=== PATIENT | male | born 1965 | race American Indian/Alaskan Native ===

== ENCOUNTER 2016-08-24 17:04 | Emergency (ER) | payer OTHER ==
[~2016-08-24] VITALS: Ht 172.7 cm; Wt 86.2 kg
[2016-08-24 17:51] VITALS: BP 137/91
[2016-08-24] MEDS ORDERED: AMLODIPINE BESYL5 MG ORAL (17:56)
--- NOTE | 2016-08-24 19:51 | Emergency Room Report ---
History of Present Illness General Chief Complaint: General Complaint Source: Patient Present Illness HPI 51-year-old male presents ED for evaluation. Patient notes history of hypertension. States he was recently switched from amlodipine to hydrochlorothiazide. States he's been taking hydrochlorothiazide for the last 3 days has been feeling nauseous. Eyes vomiting. Denies chest pain or shortness of breath. Denies any fevers chills. Patient states that he is having some back pain. 08/01. Throbbing. Nonradiating. Worse with twisting and bending. Patient is chronic history of back pain. No other aggravating or relieving factors. Denies any other associated symptom Allergies: Coded Allergies: No Known Allergies (Unverified , 08/24/16) Patient History Past Medical History: HTN Past Surgical History: none Pertinent Family History: none Social History: Denies: alcohol use, drug use, smoking Immunizations: UTD Reviewed Nursing Documentation: PMH: Agreed, PSxH: Agreed Nursing Documentation-PMH Past Medical History: No History, Except For Hx Hypertension: Yes Review of Systems All Other Systems: negative except mentioned in HPI Physical Exam Vital Signs Date Time Temp Pulse Resp B/P Pulse Ox O2 Delivery O2 Flow Rate FiO2 08/24/16 17:14 97.9 86 18 137/91 98 Room Air Sp02 EP Interpretation: reviewed, normal General Appearance: no apparent distress, alert, GCS 15, non-toxic Head: normocephalic, atraumatic Eyes: bilateral eye PERRL, bilateral eye normal inspection ENT: hearing grossly normal, normal pharynx, no angioedema, normal voice Neck: full range of motion, supple/symm/no masses Respiratory: chest non-tender, lungs clear, normal breath sounds, speaking full sentences Cardiovascular #1: regular rate, rhythm, no edema Cardiovascular #2: 2+ carotid (R), 2+ carotid (L), 2+ radial (R), 2+ radial (L) , 2+ dorsalis pedis (R), 2+ dorsalis pedis (L) Gastrointestinal: normal bowel sounds, non tender, soft, non-distended, no guarding, no rebound Rectal: deferred Genitourinary: normal inspection, no CVA tenderness Musculoskeletal: back normal, gait/station normal, normal range of motion, non- tender Neurologic: alert, oriented x3, responsive, motor strength/tone normal, sensory intact, speech normal Psychiatric: judgement/insight normal, memory normal, mood/affect normal, no suicidal/homicidal ideation Reflexes: 3+ bicep (R), 3+ bicep (L), 3+ tricep (R), 3+ tricep (L), 3+ knee (R) , 3+ knee (L) Skin: normal color, no rash, warm/dry, well hydrated Lymphatic: no adenopathy Medical Decision Making Diagnostic Impression: Primary Impression: Adverse reaction to drug Qualified Codes: T88.7XXA - Unspecified adverse effect of drug or medicament, initial encounter Additional Impression: Hypertension Qualified Codes: I10 - Essential (primary) hypertension ER Course 51-year-old male presents to ED complaining of nausea and back pain after starting new blood pressure medication. History of hypertension Differential-allergic reaction, viral syndrome, back pain Patient placed on stretcher. After initial history physical exam reveals a middle-aged male in no acute distress. Physical exam unremarkable. Vital stable. I see no reason for lab work for further intervention. Pain in back is muscular and is his typical pain I see no reason for further exploration. I explained to the patient we'll switch him from for thiazide back to amlodipine. Patient will need to discuss this with his PMD as to which medication is best for him in the long run. Patient agrees with plan Diagnoses-adverse reaction to drug, hypertension Stable and discharged to home with prescription for amlodipine. Stop hydrochlorothiazide. Followup with PMD. Return to ED if symptoms recur or worsen Last Vital Signs Date Time Temp Pulse Resp B/P Pulse Ox O2 Delivery O2 Flow Rate FiO2 08/24/16 17:51 97.9 18 137/91 98 Room Air 08/24/16 17:14 86 Status: improved Disposition: HOME, SELF-CARE Condition: Stable Scripts Amlodipine Besylate* (AMLODIPINE BESYLATE*) 5 Mg Tablet 5 MG ORAL DAILY, #30 TAB Prov: HITESH DAI M.D. 08/24/16 Referrals: [employer] [facility] (PCP) Patient Instructions: Hypertension, [id number] HITESH DAI M.D. August 24, 2016 19:50
== END 2016-08-24 18:05 | disposition home or self-care (01) ==
LOC: EMR 17:45
DX: T50.2X5A Adverse effect of carbonic-anhydrase inhibitors, benzothiadiazides and other diuretics, initial encounter (principal); R11.0 Nausea; M54.9 Dorsalgia, unspecified; I10 Essential (primary) hypertension
CPT/HCPCS: 99283

== ENCOUNTER 2016-09-17 21:56 | Emergency (ER) | payer OTHER ==
[~2016-09-17] VITALS: Ht 172.7 cm; Wt 86.2 kg
[~2016-09-17 21:56] MED LIST: AMLODIPINE BESYL5 MG ORAL
[2016-09-17] MEDS ORDERED: Ketorolac 60mg Inj IM ONE (22:15)
[2016-09-17 22:27] VITALS: BP 135/83
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
[2016-09-17] MEDS ORDERED: IBUPROFEN600 MG ORAL (23:07)
[2016-09-17] MEDS ORDERED: TRAMADOL HCL50 MG ORAL (23:07)
[2016-09-17 23:19] VITALS: BP 135/83
== END 2016-09-17 23:20 | disposition home or self-care (01) ==
LOC: EMR 22:10
DX: S86.811A Strain of other muscle(s) and tendon(s) at lower leg level, right leg, initial encounter (principal); X58.XXXA Exposure to other specified factors, initial encounter; Y93.9 Activity, unspecified; Y92.9 Unspecified place or not applicable; I10 Essential (primary) hypertension
CPT/HCPCS: 29540; 96372; 99284

== ENCOUNTER 2017-06-09 18:22 | Emergency (ER) | payer OTHER ==
[~2017-06-09] VITALS: Ht 172.7 cm; Wt 95.3 kg
[~2017-06-09 18:22] MED LIST changes: +IBUPROFEN600 MG ORAL; +TRAMADOL HCL50 MG ORAL
--- NOTE | 2017-06-09 18:37 | Emergency Room Report ---
History of Present Illness General Chief Complaint: Laceration Source: Patient, Medical Record Present Illness HPI 51 yo male patient prsents to ER for laceration on left palm for a few hours. Patient reports he was at work and set his hand down on some glass and "cut" his hand. Patient denies loss of ROM or numbness in hand. Patient reports bleeding from laceration; states was able to stop bleeding with pressure. Patient reports he does not know his vaccine status for tetanus. Patient denies fever, chest pain, SOB. Allergies: Coded Allergies: No Known Allergies (Unverified , 08/24/16) Patient History Past Medical History: see triage record Reviewed Nursing Documentation: PMH: Agreed, PSxH: Agreed Nursing Documentation-PMH Past Medical History: No History, Except For Hx Hypertension: Yes Review of Systems All Other Systems: negative except mentioned in HPI Physical Exam Vital Signs Date Time Temp Pulse Resp B/P (MAP) Pulse Ox O2 Delivery O2 Flow Rate FiO2 06/09/17 18:24 98.0 83 18 142/85 96 Room Air 98.1 Sp02 EP Interpretation: reviewed, normal General Appearance: well appearing, no apparent distress, alert, GCS 15, non- toxic Head: normocephalic, atraumatic Eyes: bilateral eye normal inspection, bilateral eye PERRL, bilateral eye EOMI ENT: hearing grossly normal, normal pharynx, normal voice, TMs + canals normal , uvula midline, moist mucus membranes Neck: normal inspection, full range of motion, no bony tend Respiratory: normal inspection, lungs clear, normal breath sounds, no rhonchi, no respiratory distress, no accessory muscle use, no wheezing, speaking full sentences Cardiovascular #1: regular rate, rhythm, no edema Musculoskeletal: back normal, digits/nails normal, gait/station normal, normal range of motion, no calf tenderness, other - NVI Neurologic: alert, oriented x3, responsive, net application architect III-XII nml as tested, motor strength/tone normal, normal gait Psychiatric: mood/affect normal Skin: no rash, warm/dry, palpation normal, laceration - 2cm laceration on left palm near thenar eminence, no active bleeding Lymphatic: no adenopathy Procedures Laceration/Wound Repair Laceration/Wound Repair : Consent: Verbal Wound Location: upper extremity - left hand Wound's Depth, Shape: superficial Wound Explored: contaminated Betadine Prep?: Yes Anesthesia: 1% Lidocaine Wound Repaired With: sutures Suture Size/Type: 5:0, proline Number of Sutures: 4 Layer Closure?: No Sterile Dressing Applied?: Yes Splint Applied?: No Patient Tolerated: Well Complications: None Medical Decision Making PA Attestation Dr. Rodriguez is my supervising Physician whom patient management has been discussed with. Diagnostic Impression: Primary Impression: Laceration ER Course Pt presents to ED c/o laceration on right wrist. DDX considered but are not limited to laceration, abrasion, contusion, cellulitis. Ordered xray, tdap, lidocaine, and pain medication for patient. VITAL SIGNS are WNL, patient is afebrile ED INTERVENTIONS: Xray of hand negative for acute fracture, no retained FB visible on x-ray. Wound was cleaned and irrigated using normal saline. Local block using Lidocaine 1%. Laceration repaired. Wound cleaned and covered using sterile dressing and Bacitracin. See procedure note. Patient reports understanding and agreement to treatment plan. DISCHARGE: Rx provided for Keflex Rx provided for Ibuprofen Rx provided for Bacitracin. At this time pt is stable for d/c to home. Will provide with patient care instructions and any necessary prescriptions. Patient to take medication as instructed. Care plan and follow-up instructions provided. Work note provided to patient. Signed paperwork for injury at work. Patient questions asked and answered. Patient instructed to follow-up with primary care provider in 2-3 days for wound check and 7-10 days for removal of sutures. Patient instructed to followup with PCP to discuss further treatment plan and ability to go to work, ER precautions given. Patient instructed to return to ER immediately for any new or worsening of symptoms. Other X-Ray Diagnostic Results Other X-Ray Diagnostic Results : X-Ray ordered: left hand # of Views/Limited Vs Complete: 3 View Indication: Pain EP Interpretation: Yes GIL Xray: Interpretation reviewed, by supervising MD, and agrees with findings. Interpretation: no dislocation, no soft tissue swelling, no fractures Impression: No acute disease GIL Scribe Text Hiram Nassar PA-C Last Vital Signs Date Time Temp Pulse Resp B/P (MAP) Pulse Ox O2 Delivery O2 Flow Rate FiO2 06/09/17 18:24 98.0 83 18 142/85 96 Room Air 98.1 Status: improved Disposition: HOME, SELF-CARE Condition: Stable Scripts Ibuprofen* (MOTRIN*) 600 Mg Tablet 600 MG ORAL Q8H Y for For Pain, #30 TAB 0 Refills Prov: Mal Nassar 06/09/17 Cephalexin* (KEFLEX*) 500 Mg Capsule 500 MG ORAL EVERY 12 HOURS for 7 Days, #14 CAP 0 Refills Prov: Mal Nassar 06/09/17 Bacitracin/Polymyxin B Sulfate (BACITRACIN-POLYMYXIN OINTMENT) 28.35 Gm Oint...g. 1 APPLIC TP BID for 7 Days, GM Prov: Mal Nassar 06/09/17 Referrals: [facility] (PCP) Patient Instructions: Laceration Care, Adult Additional Instructions: Followup with primary care provider in 2-3 days for wound check and 7-10 for suture removal. Take medications as directed. Patient questions asked and answered. ER precautions given, patient instructed to return to ER immediately for any new or worsening of symptoms. Mal Nassar Jun 09, 2017 18:37
[2017-06-09] MEDS ORDERED: Lidocaine 1% Plain 30 ml INJ ONE (18:45)
[2017-06-09] MEDS ORDERED: Ketorolac 30mg Inj IM ONE (18:45)
[2017-06-09] MEDS ORDERED: Bacitracin Oint UD TOPIC ONE (18:45)
[2017-06-09] MEDS ORDERED: Tetanus/Diptheria/Pertussis Vaccine 0.5ml Syr IM ONE (18:45)
[2017-06-09] MEDS ORDERED: BACITRACIN-P28.35 GM TP (19:20)
[2017-06-09] MEDS ORDERED: CEPHALEXIN500 MG ORAL (19:20)
[2017-06-09] MEDS ORDERED: IBUPROFEN600 MG ORAL (19:20)
[2017-06-09 19:33] VITALS: BP 140/85
[2017-06-09 19:34] VITALS: BP 140/85
--- NOTE | 2017-06-10 11:16 | Diagnostic Imaging Report ---
Indication: pain Findings: 3 views of the left hand were obtained. Metallic foreign bodies demonstrated over the lateral aspect of the hand. Osteophytes and joint space narrowing involving interphalangeal joints especially the DIP joints noted. No fracture identified. IMPRESSION: Osteoarthritis Evidence of prior injury
== END 2017-06-09 19:38 | disposition home or self-care (01) ==
LOC: EMR 18:35
DX: S61.412A Laceration without foreign body of left hand, initial encounter (principal); I10 Essential (primary) hypertension; Z23 Encounter for immunization; W25.XXXA Contact with sharp glass, initial encounter; Y93.9 Activity, unspecified; Y99.0 Civilian activity done for income or pay
CPT/HCPCS: 12001; 73130; 90471; 90715; 96372; 99284; J1885; J2001; Z7502

== ENCOUNTER 2018-11-22 19:30 | Emergency (ER) | payer OTHER ==
[~2018-11-22] VITALS: Ht 172.7 cm; Wt 95.3 kg
[~2018-11-22 19:30] MED LIST changes: +BACITRACIN-P28.35 GM TP; +CEPHALEXIN500 MG ORAL
[2018-11-22] MEDS ORDERED: NKM (19:50)
--- NOTE | 2018-11-22 20:00 | NUR ---
ED Nurse Note: Recieved pt from home, c/o lower back pain, denies injury, states felt strain since yesterday, pain worsene when moving, pt does heavy lifting, pain at 5/10, pt also took garlic treatment at home yesterday eating 5 garlic cloves and now nausea, denies cp, sob, or any other complaitns or discomforts.
[2018-11-22] MEDS ORDERED: Ketorolac 60mg Inj IM ONE (20:15)
[2018-11-22 21:30] VITALS: BP 141/79
--- NOTE | 2018-11-22 21:31 | Emergency Room Report ---
History of Present Illness General Chief Complaint: Back Pain-No Injury Source: Patient Present Illness HPI This patient states that a few days ago he was at work lifting a heavy object and twisted his back. He states he had pain at that time. He states that subsequently he again went to work and aggravated his back symptoms. He states he is also been nauseated today. He was also concerned about his blood pressure as he has a history of high blood pressure and was using amlodipine but stopped on his own and started eating garlic cloves. Patient denies recent illness. Denies fever or chills. He denies abdominal pain. Denies diarrhea. He states he still has a little nauseated. He has no other complaints. Allergies: Coded Allergies: No Known Allergies (Unverified , 08/24/16) Patient History Past Medical History: see triage record, HTN Social History: Denies: smoking, alcohol use, drug use Reviewed Nursing Documentation: PMH: Agreed; PSxH: Agreed Nursing Documentation-PMH Hx Hypertension: Yes Review of Systems All Other Systems: negative except mentioned in HPI Physical Exam Vital Signs Date Time Temp Pulse Resp B/P (MAP) Pulse Ox O2 Delivery O2 Flow Rate FiO2 11/22/18 19:45 98.1 63 14 144/85 (104) 94 Room Air Sp02 EP Interpretation: reviewed, normal General Appearance: no apparent distress, alert, GCS 15, non-toxic Head: normocephalic, atraumatic Eyes: bilateral eye normal inspection, bilateral eye PERRL ENT: hearing grossly normal, normal pharynx, no angioedema, normal voice Neck: full range of motion, supple/symm/no masses Respiratory: chest non-tender, lungs clear, normal breath sounds, no respiratory distress, no retraction, no accessory muscle use, speaking full sentences Cardiovascular #1: regular rate, rhythm, no edema Gastrointestinal: normal bowel sounds, non tender, soft, non-distended, no guarding, no rebound Rectal: deferred Musculoskeletal: back normal, gait/station normal, normal range of motion, tender - TTP Lumbar paraspinal m. Neurologic: alert, oriented x3, responsive, motor strength/tone normal, sensory intact, speech normal Psychiatric: judgement/insight normal, memory normal, mood/affect normal, no suicidal/homicidal ideation Medical Decision Making Diagnostic Impression: Primary Impression: Back pain ER Course This patient has a clinical presentation consistent with mechanical back pain. There are no red flags on physical exam. The patient denies any concerning features such as trauma, fevers, night sweats, history of malignancy, pain worse at night, IV drug abuse, urinary/fecal incontinence or retention, focal weakness or change in sensation, or refractory pain. Given these pertinent negatives in the history and physical exam an emergent cause of the back pain such as epidural abscess, metastasis to bone, cauda equina syndrome, and fracture is less likely. I also doubt emergent cardiovascular cause of back pain such as aortic dissection a ruptured abdominal aortic aneurysm given patient with equal pulses in all 4 extremities with no diastolic murmur or pulsatile abdominal mass. The patient was counseled that, though unlikely, the possibility of an emergent cause of back pain may still be present and that the patient should return immediately if symptoms persist or worsen. The symptoms are reproducible with movement. Patient had a benign evaluation and neurologic examination. No emergency etiology was identified. Last Vital Signs Date Time Temp Pulse Resp B/P (MAP) Pulse Ox O2 Delivery O2 Flow Rate FiO2 11/22/18 19:45 98.1 63 14 144/85 (104) 94 Room Air Status: improved Disposition: HOME, SELF-CARE Condition: Improved Patient Instructions: Back Pain, Adult Tonya Grey DO Nov 22, 2018 21:31
[2018-11-22] MEDS ORDERED: IBUPROFEN600 MG ORAL (21:33)
[2018-11-22] MEDS ORDERED: AMLODIPINE BESYL5 MG ORAL (21:33)
[2018-11-22] MEDS ORDERED: CYCLOBENZAPRINE10 MG ORAL (21:33)
[2018-11-22 21:55] VITALS: BP 144/85
--- NOTE | 2018-11-22 21:55 | NUR ---
ER DISCHARGE NOTE: Patient is cleared to be discharged per ERMD, pt is aox4, on room air, with stable vital signs. pt was given dc and prescription instructions, pt was able to verbalize understanding, pt id band removed without complications. pt is able to ambulate with steady gait. pt took all belongings.
== END 2018-11-22 21:55 | disposition home or self-care (01) ==
LOC: EMR 20:15
DX: M54.5 Low back pain (principal); X50.0XXA Overexertion from strenuous movement or load, initial encounter; Y92.9 Unspecified place or not applicable; I10 Essential (primary) hypertension
CPT/HCPCS: 96372; 99283

== ENCOUNTER 2019-10-07 12:54 | Emergency (ER) | payer OTHER ==
[~2019-10-07] VITALS: Ht 172.7 cm; Wt 86.2 kg
[~2019-10-07 12:54] MED LIST changes: +CYCLOBENZAPRINE10 MG ORAL; +NKM
[2019-10-07 13:05] VITALS: BP 151/75
[2019-10-07] MEDS ORDERED: Ketorolac 30mg Inj IV ONE (13:15)
[2019-10-07] MEDS ORDERED: Omnipaque-300 100ml vial INJ PRN (13:15)
--- NOTE | 2019-10-07 13:34 | NUR ---
ED Nurse Note:pt. came with c/o abdominal pain nausea diahrrea, blood and urine sent to labs, given IV meds
[2019-10-07 13:50] LABS: BASOPHILS % (AUTO) 2.9 % (0.0-2.0); HEMATOCRIT 49.3 % (42.0-52.0); LYMPHOCYTES % (AUTO) 46.9 % (20.0-45.0); MEAN CORPUSCULAR VOLUME 94 FL (80-99); MONOCYTES % (AUTO) 6.7 % (1.0-10.0); NEUTROPHILS % (AUTO) 39.4 % (45.0-75.0); PLATELET COUNT 244 K/UL (150-450); RED BLOOD COUNT 5.24 M/UL (4.70-6.10); RED CELL DISTRIBUTION WIDTH 13.4 % (11.6-14.8); WHITE BLOOD COUNT 4.4 K/UL (4.8-10.8)
[2019-10-07 13:50] LABS: APPEARANCE,URINE CLEAR; BILIRUBIN, URINE NEGATIVE (NEGATIVE); COLOR,URINE YELLOW; GLUCOSE, URINE (UA) NEGATIVE (NEGATIVE); KETONES,URINE 1+ (NEGATIVE); LEUKOCYTE ESTERASE ,URINE 1+ (NEGATIVE); NITRITE,URINE NEGATIVE (NEGATIVE); PH,URINE 8 (4.5-8.0); PROTEIN,URINE NEGATIVE (NEGATIVE); UROBILINOGEN,URINE 8 MG/DL (0.0-1.0)
[2019-10-07 13:59] LABS: ANION GAP 2 mmol/L (5-15); BLOOD UREA NITROGEN 9 mg/dL (7-18); CALCIUM 8.3 MG/DL (8.5-10.1); CARBON DIOXIDE 31 MMOL/L (21-32); CHLORIDE 105 MMOL/L (98-107); POTASSIUM 4.2 MMOL/L (3.5-5.1); SODIUM 138 MMOL/L (136-145)
[2019-10-07] MEDS ORDERED: Azithromycin 500 MG in NS 275 ML IV ONE (14:00)
[2019-10-07] MEDS ORDERED: cefTRIAXone 1 GM in NS 55 ML IVPB ONE (14:00)
[2019-10-07 14:04] LABS: ALANINE AMINOTRANSFERASE 40 U/L (12-78); ALBUMIN 3.7 G/DL (3.4-5.0); ALBUMIN/GLOBULIN RATIO 1.1 (1.0-2.7); ALKALINE PHOSPHATASE 76 U/L (46-116); ASPARTATE AMINO TRANSFERASE 63 U/L (15-37); BILIRUBIN,TOTAL 0.5 MG/DL (0.2-1.0)
--- NOTE | 2019-10-07 14:45 | NUR ---
ED Nurse Note:pt. went to abdominal CT scan
--- NOTE | 2019-10-07 15:06 | Diagnostic Imaging Report ---
Indication: Reason For Exam: PAIN Technique: CT scan of the abdomen and pelvis was performed from the diaphragms to the symphysis pubis with intravenous contrast material only per specific request of the ordering physician.. 5 mm sections were generated. Axial, coronal, and sagittal images are presented. Dose: Total Dose Length Product - DLP [address] Dose Index - CTDIvol(s) 9 mGy. Automated exposure control was utilized for dose reduction. Comparison: None Findings: Granulomas are noted in the lung bases. There are calcified nodes in the pulmonary mikayla bilaterally. Linear densities are noted in the posterior lung bases. The liver is unremarkable. The gallbladder is normal. The spleen is normal. Pancreas is unremarkable. Adrenal glands are normal. Kidneys are normal. There is minimal calcification of the aorta. Retroperitoneum is free of adenopathy. The bowel is normal caliber. The appendix is normal. Diverticula are present in the colon. There is no definite evidence of diverticulitis. The bladder is normal. Prostate and seminal vesicles are unremarkable. There is a small umbilical hernia containing fat. Impression: Diverticulosis. Old granulomatous disease. Bilateral scarring or atelectasis in the bases. Small umbilical hernia containing fat. Atherosclerotic change. The CT scanner at [facility] is accredited by the [employer] and the scans are performed using protocols designed to limit radiation exposure to as low as reasonably achievable to attain images of sufficient resolution adequate for diagnostic evaluation.
--- NOTE | 2019-10-07 15:11 | Emergency Room Report ---
History of Present Illness General Chief Complaint: Nausea, Vomiting, and Diarrhea Source: Patient Present Illness HPI 54-year-old male with history of liver disease due to alcohol abuse and hypertension currently not controlled here complaining of 1 week of diffuse abdominal pain rating it 5 out of 10 and few bouts of nonbloody emesis and nonbloody diarrhea. Denies any fever and chills. Reports that his sexual partner was diagnosed with PID over a week ago and patient symptoms started right after. Reports that he has not had any alcohol or any opiates in 20 years however icterus is noted in both eyes. Denies any chest pain, shortness of breath, headache and dizziness. Denies any urinary symptoms or penile discharge. Reports that his sexual partner was treated for PID as outpatient. Patient is requesting treatment for that. No abdominal tenderness noted. Patient used to take amlodipine for blood pressure however has not taken in a long time. Denies any headache and dizziness, unilateral or generalized weakness. Patient is neurovascularly intact and speaking in full sentences. Denies any tobacco smoke, marijuana use, no other drug use. Allergies: Coded Allergies: No Known Allergies (Unverified , 08/24/16) COVID-19 Screening Contact w/high risk pt: No Recent Travel to affected area: No Experienced COVID-19 symptoms?: No COVID-19 Testing performed TOY STUFFER: No Patient History Past Medical History: see triage record Past Surgical History: none Pertinent Family History: none Immunizations: UTD Reviewed Nursing Documentation: PMH: Agreed; PSxH: Agreed Nursing Documentation-PMH Past Medical History: No History, Except For Hx Hypertension: Yes Review of Systems All Other Systems: negative except mentioned in HPI Physical Exam Vital Signs Date Time Temp Pulse Resp B/P (MAP) Pulse Ox O2 Delivery O2 Flow Rate FiO2 10/07/19 13:00 98.1 69 17 151/75 (100) 98 Room Air Sp02 EP Interpretation: reviewed, abnormal - Elevated blood pressure General Appearance: no apparent distress, alert, GCS 15, non-toxic Head: normocephalic, atraumatic Eyes: bilateral eye normal inspection, bilateral eye PERRL ENT: hearing grossly normal, normal pharynx, no angioedema, normal voice Neck: full range of motion, supple/symm/no masses Respiratory: chest non-tender, lungs clear, normal breath sounds, no rhonchi, no respiratory distress, no retraction, no wheezing, speaking full sentences Cardiovascular #1: regular rate, rhythm, no edema, no murmur Gastrointestinal: normal bowel sounds, non tender, soft, no mass, no organomegaly, no peritonitis, no bruit, no guarding, no pulsatile mass, no rebound, distended, other - Grande sign is negative,, abdomen appears to be distended however patient reports it is been like that for a long time Rectal: deferred Genitourinary: no CVA tenderness Musculoskeletal: back normal, no calf tenderness, pelvis stable, no lower extremity edema Neurologic: alert, motor strength/tone normal, oriented x3, sensory intact, responsive, speech normal Psychiatric: judgement/insight normal, memory normal, mood/affect normal, no suicidal/homicidal ideation Skin: no rash Lymphatic: no adenopathy Medical Decision Making PA Attestation All my diagnosis and treatment plans were reviewed ad discussed with my supervising physician Dr. Grey Diagnostic Impression: Primary Impression: Diverticulosis Additional Impressions: Abdominal hernia STD exposure Nausea, vomiting, and diarrhea ER Course 54-year-old male with history of liver disease due to alcohol abuse and hypertension currently not controlled here complaining of 1 week of diffuse abdominal pain rating it 5 out of 10 and few bouts of nonbloody emesis and nonbloody diarrhea. Denies any fever and chills. Reports that his sexual partner was diagnosed with PID over a week ago and patient symptoms started right after. Reports that he has not had any alcohol or any opiates in 20 years however icterus is noted in both eyes. Denies any chest pain, shortness of breath, headache and dizziness. Denies any urinary symptoms or penile discharge. Reports that his sexual partner was treated for PID as outpatient. Patient is requesting treatment for that. No abdominal tenderness noted. Patient used to take amlodipine for blood pressure however has not taken in a long time. Denies any headache and dizziness, unilateral or generalized weakness. Patient is neurovascularly intact and speaking in full sentences. Denies any tobacco smoke, marijuana use, no other drug use. Ddx considered but are not limited to: appendicitis, cholecystis, gastritis, gastroenteritis, UTI, pyelonephritis, SBO, diverticulitis, diverticulosis, pancreatitis, Rico-Arnaldo Dipesh Vital signs: are WNL, pt. is afebrile H&PE are most consistent with: STD exposure, abdominal hernia, diverticulosis, nausea vomiting diarrhea ORDERS: abdominal CT, abdominal pain set, EKG, Zofran, omeprazole, dicyclomine, ciprofloxacin ED INTERVENTIONS: Toradol, NS bolus, Zofran, Pepcid, ceftriaxone, azithromycin DISCHARGE: At this time pt. is stable for d/c to home. Will provide printed patient care instructions, and any necessary prescriptions. Care plan and follow up instructions have been discussed with the patient prior to discharge. Patient to follow primary doctor for referral to business development, take medication as directed, keep a brat diet, at this time no further evaluation needed as patient blood work are within normal limits and CT scan was within normal limits other than diverticulosis without diverticulitis and chronic granulomas as well as a small abdominal hernia which is not the cause of his symptoms at this time. The hernia is not protruding and is reducible. Patient was advised to return to the emergency room worsening symptoms. Increase oral hydration especially electrolyte water. Patient was evaluated in the context of the global COVID-19 pandemic, which necessitated consideration that the patient might be at risk for infection with the SARS-COV-2 virus that causes COVID-19. Institutional protocols and algorithms that pertain to the evaluation of patients at risk for COVID-19 are in a state of rapid change based on information relieved by multiple regulatory bodies including the CDC and the federal and state organizations. These policies and algorithms were followed during the patient's care in the ED. EKG Diagnostic Results Rate: normal Rhythm: NSR ST Segments: no acute changes Other Impression No acute ST changes CT/MRI/US Diagnostic Results CT/MRI/US Diagnostic Results : Imaging Test Ordered: CT abdomen pelvis with contrast Impression Diverticulosis without diverticulitis, chronic granulomas, small abdominal hernia Last Vital Signs Date Time Temp Pulse Resp B/P (MAP) Pulse Ox O2 Delivery O2 Flow Rate FiO2 10/07/19 14:15 98.1 10/07/19 13:05 17 151/75 98 Room Air 10/07/19 13:00 69 Disposition: HOME, SELF-CARE Condition: Stable Scripts Dicyclomine Hcl* (DICYCLOMINE HCL*) 10 Mg Capsule 10 MG ORAL TID, #10 CAP Prov: Lauren Morse 10/07/19 Omeprazole (OMEPRAZOLE) 20 Mg Tablet. 20 MG ORAL DAILY, #30 TAB Prov: Lauren Morse 10/07/19 Ondansetron (Zofran) 4 Mg Tablet 4 MG ORAL Q6H PRN for Nausea & Vomiting, #14 TAB Prov: Lauren Morse 10/07/19 Ciprofloxacin Hcl* (CIPROFLOXACIN HCL*) 500 Mg Tablet 500 MG ORAL EVERY 12 HOURS for 7 Days, #14 TAB 0 Refills Prov: Lauren Morse 10/07/19 Referrals: SYBIL KNIGHT,REFERRING (PCP) Patient Instructions: Diverticulosis, Hernia, Adult Additional Instructions: Take medication as directed, follow with primary doctor, if worsening symptoms return to the emergency room. Lauren Morse Oct 07, 2019 15:11
[2019-10-07] MEDS ORDERED: ZOFRAN4 M1 ORAL (15:35)
[2019-10-07] MEDS ORDERED: DICYCLOMINE HCL10 MG ORAL (15:35)
[2019-10-07] MEDS ORDERED: OMEPRAZOLE20 M3 ORAL (15:35)
[2019-10-07] MEDS ORDERED: CIPROFLOXACIN500 M2 ORAL (15:35)
[2019-10-07 15:50] VITALS: BP 151/75
--- NOTE | 2019-10-07 15:50 | NUR ---
ER DISCHARGE NOTE: Patient is cleared to be discharged per ERMD, pt is aox4, on room air, with stable vital signs. pt was given dc and prescription instructions, pt was able to verbalize understanding, pt id band and iv site removed without complications. pt is able to ambulate with steady gait. pt took all belongings.
== END 2019-10-07 15:59 | disposition home or self-care (01) ==
LOC: EMR 13:30
DX: K57.90 Diverticulosis of intestine, part unspecified, without perforation or abscess without bleeding (principal); K46.9 Unspecified abdominal hernia without obstruction or gangrene; R11.2 Nausea with vomiting, unspecified; R19.7 Diarrhea, unspecified; Z20.2 Contact with and (suspected) exposure to infections with a predominantly sexual mode of transmission; I10 Essential (primary) hypertension; K42.9 Umbilical hernia without obstruction or gangrene
CPT/HCPCS: 36415; 74177; 80053; 80307; 81003; 83690; 84484; 85025; 85610; 85730; 93005; 96361; 96365; 96368; 96375; 99284; J0456; J0696; J1885; J2405; J7030; J7050; Q9967; S0028